=== PATIENT | male | born 1980 | race Caucasian/White ===

== ENCOUNTER 2018-10-06 16:07 | Emergency (ER) | payer MEDICAID ==
[~2018-10-06] VITALS: Ht 167.6 cm; Wt 68.0 kg
[2018-10-06 16:32] VITALS: Ht 167.6 cm; Wt 68.0 kg
[2018-10-06 16:50] LABS: BASOPHIL % 0.5 % (0-2); PLATELET COUNT 257 x10^3mcL (130-400); RED CELL DISTRIBUTION WIDTH 14.2 % (11.5-14.5)
[2018-10-06 16:59] LABS: CALCIUM 8.3 mg/dL (8.5-10.1); CARBON DIOXIDE 27.9 mmol/L (21-32); CHLORIDE SERUM 108 mmol/L (98-107); CREATININE SERUM 0.7 mg/dL (0.7-1.3); GFR1 > 60 mL/min; GLUCOSE SERUM 112 mg/dL (74-106); POTASSIUM SERUM 3.7 mmol/L (3.5-5.1); SODIUM SERUM 144 mmol/L (136-145)
[2018-10-06 17:03] LABS: ALBUMIN 4.3 g/dL (3.4-5.0); ALKALINE PHOSPHATASE 87 U/L (46-116); ALT/SGPT 54 U/L (16-63); AST/SGOT 34 U/L (15-37); BILIRUBIN TOTAL 0.53 mg/dL (0.20-1.00)
[2018-10-06 18:17] LABS: AMPHETAMINE QUAL UR NONE DETECTED (See below)
[2018-10-06 20:00] VITALS: BP 132/95
== END 2018-10-06 20:00 | disposition home or self-care (01) ==
LOC: ED 16:07 → EDBD 16:07 → ED 20:00
PROVIDERS: Emergency Medicine
DX: F10.129 Alcohol abuse with intoxication, unspecified (principal); R41.82 Altered mental status, unspecified
CPT/HCPCS: 82962; G0480; J2060; J2405